=== PATIENT | female | born 1975 | race African-American/Black ===

== ENCOUNTER 2018-05-19 20:02 | Emergency (ER) | payer OTHER ==
[~2018-05-19] VITALS: Ht 157.5 cm; Wt 80.7 kg
[~2018-05-19 20:02] MED LIST: BACTRIM DS TAB1 EACH PO; CLARITIN-D 121 EACH PO; KEFLEX500 M1 PO; NASONEX17 GM NASB; TESSALON PERLE100 M1 PO
[2018-05-19 20:44] LABS: ABSOLUTE BASOPHIL COUNT 0.3 /CUMM (0.0-0.2); ABSOLUTE EOSINOPHIL COUNT 0.2 /CUMM (0.0-0.7); ABSOLUTE GRANULOCYTE CT 2.2 /CUMM (1.4-6.5); ABSOLUTE LYMPH COUNT 3.4 /CUMM (1.2-3.4); ABSOLUTE MONOCYTE COUNT 0.9 /CUMM (0.10-0.60); BASOPHIL % 4.7 % (0.0-2.0); EOSINOPHIL % 2.8 % (0-5); GRANULOCYTE % 31.2 % (42.2-75.2); HEMATOCRIT 35.3 % (37-47); MEAN CORPUSCULAR HGB 30.2 PG (27.0-31.0); MEAN CORPUSCULAR VOLUME 88.9 FL (81.0-99.0); MEAN PLATELET VOLUME 7.8 FL (7.4-10.4); PLATELET COUNT 401 /CUMM (130-400); RBC DISTRIBUTION WIDTH 14.8 % (11.5-14.5); RED BLOOD CELL CT 3.97 /CUMM (4.20-5.40)
[2018-05-19 22:09] VITALS: BP 105/57
--- NOTE | 2018-05-19 22:13 | ED GI/GU/ABDOMINAL COMPLAINT ---
See Addendum History of Present Illness General Chief Complaint: General Adult Stated Complaint: PT IS AND IS BLEEDING SOME Source: patient Exam Limitations: no limitations Vital Signs & Intake/Output Vital Signs & Intake/Output Vital Signs Date Time Temp Pulse Resp B/P B/P Pulse O2 O2 Flow FiO2 Mean Ox Delivery Rate 05/19 2209 97.9 65 20 105/57 99 Room Air 05/19 2023 97.7 62 18 144/68 99 Room Air Allergies Coded Allergies: shellfish derived (Intermediate, STOAMCH PAIN, VOMITING 06/08/16) Reconcile Medications Benzonatate (Tessalon Perle) 100 MG CAPSULE 1 CAP PO TID PRN COUGH Loratadine/Pseudoephedrine (Claritin-D 12 Hour Tablet) 5 MG-120 MG TAB.ER.12H 1 TAB PO BID PRN CONGESTION Mometasone Furoate (Nasonex) 50 MCG SPRAY.PUMP 2 SPRAY NASB DAILY PRN CONGESTION Triage Note: PT FROM HOME C/O OF LOWER PELVIC PAIN/BACK PAIN SINCE YESTERDAY. PT STATES THAT SHE IS , LMP 03/14/18, PT TOOK A TEST IN MARCH. PT HAS A SCHEDULED OBGYN FOR TOMORROW FOR FIRST APPT. PT STATES BLEEDING IS CONSTANT AND SOAKING 1 PAD PER HR SINCE LAST NIGHT. "ITS LIKE A REGULAR PEROID" PT STATES PAIN 7/10 ACHING PAIN. VSS. PT HAS HAD 3 C-SECTIONS AND 1 MISCARRIAGE IN THE PAST YEARS PRIOR. Triage Nurses Notes Reviewed? yes ? y Is pt currently ? No HPI: 43-year-old -[place] female 5 para 3 SAB 1 EAB 1 presents with onset of vaginal bleeding since yesterday typical of her menstrual cycle, with her last normal menstrual period approximately 1 month ago. Patient performed a home test which was positive. She has noted some increasing back pain and pelvic cramping over the past 1-2 days. She denies any history of ectopic , STD, PID hypertension, diabetes or other medical problems. She denies any urinary tract symptoms Past History Travel History Traveled to [place] past 21 day No Medical History Any Pertinent Medical History? see below for history Neurological: NONE EENT: NONE Cardiovascular: NONE Respiratory: NONE Gastrointestinal: NONE Hepatic: NONE Renal: NONE Musculoskeletal: NONE Psychiatric: NONE Endocrine: NONE Blood Disorders: NONE Cancer(s): NONE RECRUITMENT OFFICER/Reproductive: NONE Surgical History Surgical History: non-contributory Psychosocial History What is your primary language Japanese Tobacco Use: Current Not Daily ETOH Use: occasional use Illicit Drug Use: marijuana Family History Hx Contributory? No Review of Systems Review of Systems Constitutional: Reports: see HPI. Denies: no symptoms, chills, diaphoresis, fever, malaise, weakness, unexplained weight loss. All Other Systems: Reviewed and Negative Physical Exam Physical Exam General Appearance: well developed/nourished, no apparent distress, alert, awake Head: atraumatic, normal appearance Eyes: Bilateral: normal appearance. Ears, Nose, Throat, Mouth: hearing grossly normal Neck: supple Respiratory: normal breath sounds, chest non-tender, no respiratory distress, quiet respiration, lungs clear Cardiovascular: regular rate/rhythm Gastrointestinal: normal bowel sounds, soft, non-tender, no organomegaly Pelvic: deferred Neurologic/Psych: awake, alert, oriented x 3 Core Measures ACS in differential dx? No Sepsis Present: No Sepsis Focused Exam Completed? No Progress Differential Diagnosis: ectopic , ovarian cyst, ovarian torsion, threatened AB, UTI/pyelo Plan of Care: Orders Procedure Date/time Status US TRANSVAG 05/19 2208 Active CULTURE,URINE 05/19 2025 Active URINALYSIS 05/19 2025 Complete HUMAN BETA HCG TITRE 05/19 2025 Complete COMPREHENSIVE METABOLIC PANEL 05/19 2025 Complete CBC WITHOUT DIFFERENTIAL 05/19 2025 Complete TYPE & SCREEN (NOT X-MATCH) 05/19 2025 Complete Laboratory Tests 05/19/182035: Anion Gap 7, Estimated GFR > 60, BUN/Creatinine Ratio 8.6, Glucose 77, Calcium 9.5, Total Bilirubin 0.3, AST 17, ALT 28, Alkaline Phosphatase 40, Total Protein 7.5, Albumin 4.2, Globulin 3.3, Albumin/Globulin Ratio 1.3, Beta HCG, Quant 4654.2, CBC w Diff NO MAN DIFF REQ, RBC 3.97 L, MCV 88.9, MCH 30.2, MCHC 34.0, RDW 14.8 H, MPV 7.8, Gran % 31.2 L, Lymphocytes % 48.9, Monocytes % 12.4 H, Eosinophils % 2.8, Basophils % 4.7 H, Absolute Granulocytes 2.2, Absolute Lymphocytes 3.4, Absolute Monocytes 0.9 H, Absolute Eosinophils 0.2, Absolute Basophils 0.3, Urine Color YEL, Urine Clarity HAZY H, Urine pH 6.0, Ur Specific [place] >= 1.030, Urine Protein TRACE H, Urine Ketones NEG, Urine Nitrite NEG, Urine Bilirubin NEG, Urine Urobilinogen 0.2, Ur Leukocyte Esterase NEG, Ur Microscopic SEDIMENT EXAMINED, Urine RBC RARE, Urine WBC 1-3 H, Ur Epithelial Cells FEW, Urine Bacteria RARE H, Urine Mucus RARE, Urine Hemoglobin LARGE H, Urine Glucose NEG Microbiology 05/19 2036 URINE ROUT: Urine Culture - RECD Initial ED EKG: none Hand-Off Endorsed To: Maurilio Reyez MD Endorsed Time: 0230 Comments: 43-year-old -[place] female with vaginal bleeding and a positive test who is awaiting a transvaginal ultrasound to evaluate for ectopic which is thought to be unlikely given the patient's clinical presentation. Patient's case was endorsed to Dr. Reyez to obtain the ultrasound report and decide on final disposition. Departure Departure Disposition: HOME OR SELF CARE Condition: Stable Clinical Impression Primary Impression: Threatened in first trimester Referrals: Patient Has No Primary Care Dr (PCP/Family) Departure Forms: Customer Survey General Discharge Information
--- NOTE | 2018-05-20 00:06 | ULTRASOUND REPORT ---
EXAMINATION: ULTRASOUND PELVIC, COMPLETE CLINICAL INFORMATION: . Threatened miscarriage. Vaginal bleeding. Cramping. COMPARISON: None. TECHNIQUE: Transvaginal: Used to better visualize pelvic structures Transabdominal: Not adequate for visualization. Spectral Doppler and color Doppler exam was utilized. LMP: 03/14/2018. Gestational age 10 weeks 0 days. DREW 12/15/2018 FINDINGS: UTERUS: There is an intrauterine gestational sac. The gestational sac though is elongated in configuration. Yolk sac measures 2.6 x 0.7 x 1.3 cm. The mean diameter is 1.35 cm, consistent with dating of 6 weeks 1 day. DREW 01/11/2019 There is no pole. There is a yolk sac measuring 0.46 cm. There are multiple uterine fibroids. Largest anterior subserosal with calcification measuring 2.9 cm. ADNEXA: Ovarian vascularity:Doppler demonstrates both arterial and venous vascular flow in the right and left ovary. No evidence of ovarian torsion. Right Ovary: 2.7 x 1.6 x 1.3 cm. Left Ovary: 3.2 x 3.4 x 3.4 cm. There is a follicle measuring 1.9 cm and left ovary. Cul-de-sac: No Fluid IMPRESSION: 1. There is an intrauterine gestational sac with an elongated configuration. The mean diameter is 1.35 cm consistent with dating of 6 weeks 1 day, DREW 01/11/2019. There is no pole though there is a yolk sac. Dating is incongruent with dating by LMP which is 10 weeks 0 days. Correlate with serum beta hCG levels. Consider short-term follow-up ultrasound. This critical result was discussed with Dr. Ofelia Reyez on 05/19/2018, midnight and it was ascertained that the content and urgency of the report was understood at the time of direct communication.
== END 2018-05-20 01:00 ==
LOC: ERH 20:02
PROVIDERS: Emergency Medicine
DX: O20.0 Threatened abortion (principal); F10.10 Alcohol abuse, uncomplicated; F12.10 Cannabis abuse, uncomplicated; F17.200 Nicotine dependence, unspecified, uncomplicated
CPT/HCPCS: 76817; 81001; 87086